=== PATIENT | female | born 1955 | race Caucasian/White ===

== ENCOUNTER 2016-10-19 19:43 | Emergency (ER) | payer MEDICAID ==
[~2016-10-19] VITALS: Ht 165.1 cm; Wt 90.7 kg
[~2016-10-19 19:43] MED LIST: FLUT1DIS IH; INSULIN
[2016-10-19] MEDS ORDERED: ALBUTEROL FS 2.5 MG/3 ML VIAL.NEB CONTNEB ONE (20:30)
[2016-10-19] MEDS ORDERED: DEXAMETHASONE SOD PHOSPHATE 10 MG/ML VIAL IV ONE (20:30)
[2016-10-19] MEDS ORDERED: Magnesium 1GM/D5W 100ML PREMIX 200 ML IV ONE ×2 (20:30→20:46)
[2016-10-19] MEDS ORDERED: IPRATROPIUM NEB FS 0.5 MG/2.5 ML AMPUL.NEB NEB ONE (20:30)
[2016-10-19] MEDS ORDERED: IV NS 0.9% 500 ML IV ONE ×2 (20:30→20:46)
[2016-10-19] MEDS ORDERED: IV SET PRIMARY PUMP SET 1 EA INFUS.SET MC ONE (20:46)
[2016-10-19] MEDS ORDERED: IV SET PRIMARY 1 EA INFUS.SET MC ONE (20:46)
[2016-10-19] MEDS ORDERED: DEXAMETHASONE SOD PHOSPHATE 10 MG/ML VIAL ONE (20:46)
[2016-10-19] MEDS ORDERED: ALBUTEROL FS 2.5 MG/3 ML VIAL.NEB ONE (20:51)
[2016-10-19] MEDS ORDERED: IPRATROPIUM NEB FS 0.5 MG/2.5 ML AMPUL.NEB ONE (20:51)
[2016-10-19 20:56] LABS: BASOPHILS # (AUTO) 0.1 /CMM (0.0-0.2); BASOPHILS % (AUTO) 1.6 % (0.0-2.0); DIFF TOTAL % 100 %; EOSINOPHILS # (AUTO) 0.1 /CMM (0.0-0.7); EOSINOPHILS % (AUTO) 1.5 % (0.0-6.0); HEMATOCRIT 36 % (33-45); HEMOGLOBIN 12.5 g/dL (11.5-14.8); LYMPHOCYTES # (AUTO) 1.3 /CMM (0.8-4.8); LYMPHOCYTES % (AUTO) 17.9 % (20.0-44.0); MEAN CORPUSCULAR HEMOGLOBIN 30 PG (26.0-33.0); MEAN CORPUSCULAR HGB CONC 35 g/dl (31.0-36.0); MEAN CORPUSCULAR VOLUME 85 fL (82-100); MONOCYTES # (AUTO) 0.4 /CMM (0.1-1.30); MONOCYTES % (AUTO) 5.6 % (2.0-12.0); NEUTROPHILS # (AUTO) 5.5 /CMM (1.8-8.9); NEUTROPHILS % (AUTO) 73.4 % (43.0-81.0); PLATELET COUNT (AUTO) 239 /CMM (150-450); RED BLOOD CELL COUNT(AUTO) 4.23 MIL/uL (4.0-5.2); WHITE BLOOD COUNT (AUTO) 7.4 K/uL (4.3-11.0)
[2016-10-19 21:03] LABS: ANION GAP 12 (5-14); CALCIUM, SERUM 8.9 mg/dL (8.5-10.1); CARBON DIOXIDE 30 mmol/L (21-32); CHLORIDE 101 mmol/L (98-107); CREATININE 0.8 mg/dL (0.6-1.3); GFR 73 mL/min (>60); GLUCOSE 279 mg/dL (74-106); POTASSIUM 4.1 mmol/L (3.5-5.1); SODIUM SERUM 139 mmol/L (136-145); UREA NITROGEN, BLOOD 17 mg/dL (7-18)
[2016-10-19 21:10] LABS: TROPONIN I < 0.017 ng/mL (0.00-0.056)
[2016-10-19 21:53] LABS: *LACTIC ACID REFLEX FLAG YES
[2016-10-19 23:06] VITALS: BP 110/76
[2016-10-19 23:21] LABS: BILIRUBIN,DIRECT 0.1 mg/dL (0.0-0.2); BILIRUBIN,TOTAL 0.2 mg/dL (0.2-1.0)
== END 2016-10-19 23:07 | disposition home or self-care (01) ==
LOC: ER 19:52
DX: J44.9 Chronic obstructive pulmonary disease, unspecified (principal); I10 Essential (primary) hypertension; F17.210 Nicotine dependence, cigarettes, uncomplicated
CPT/HCPCS: 36415; 71010-TC; 80048-TC; 82247-TC; 82248-TC; 83605-TC; 83880; 84484-TC; 85025-TC; 87400; A4606; J1100; J3475; J7040; Z7610

== ENCOUNTER 2022-04-10 08:55 | Inpatient (IN) | payer MEDICARE, OTHER ==
[~2022-04-10] VITALS: Ht 165.1 cm; Wt 107.1 kg
--- NOTE | 2022-04-10 09:06 | NUR ---
BIB [facility] FROM HOME C/O HEADACHE, DIZZINESS, WEAKNESS SINCE WOKE UP AROUND 0730, BG 158 CLINICAL SUPPORT MANAGER. SYSTOLIC BP WAS IN 180s. HX DIABETES, HTN, COPD. AAOX4, BREATHING EVEN AND UNLABORED, PULSE 2+ BILATERALLY. +FACIAL WEAKNESS, BUT NO FACIAL DROOP NOTED. BILATERAL UPPER AND LOWER EXTREMITY WEAKNESS. TO ER BED 3, CHANGED TO GOWN. DAUGHTER AT BEDSIDE.
--- NOTE | 2022-04-10 09:08 | NUR ---
PRINTING SALES REPRESENTATIVE AT BEDSIDE
--- NOTE | 2022-04-10 09:10 | NUR ---
blood sample obtained and sent to lab
--- NOTE | 2022-04-10 09:12 | NUR ---
DR BAER AT BEDSIDE
[2022-04-10] MEDS ORDERED: ONDANSETRON HCL/PF 4 MG/2 ML VIAL ONE (09:15)
[2022-04-10] MEDS ORDERED: diphenhydrAMINE HCL 50 MG/ML VIAL ONE (09:15)
--- NOTE | 2022-04-10 09:22 | NUR ---
PT BEGINNING TO FEEL NAUSEA AND VOMITING. EMESIS BAG GENNY EVANS ADMINISTERED.
[2022-04-10] MEDS ORDERED: diphenhydrAMINE HCL 50 MG/ML VIAL IV ONE (09:30)
[2022-04-10] MEDS ORDERED: ONDANSETRON HCL/PF 4 MG/2 ML VIAL IVP ONE (09:30)
[2022-04-10] MEDS ORDERED: IV NS 0.9% 500 ML BAG IV ONE (09:30)
[2022-04-10 09:32] LABS: BASOPHILS % (AUTO) 0.3 % (0.0-2.0); EOSINOPHILS % (AUTO) 1.4 % (0.0-6.0); HEMATOCRIT 40 % (33-45); HEMOGLOBIN 13.2 g/dL (11.5-14.8); LYMPHOCYTES # (AUTO) 1.9 K/uL (0.8-4.8); LYMPHOCYTES % (AUTO) 24.6 % (20.0-44.0); MEAN CORPUSCULAR HGB CONC 33 g/dl (31.0-36.0); MEAN CORPUSCULAR VOLUME 90 fL (82-100); MONOCYTES # (AUTO) 0.4 K/uL (0.1-1.30); MONOCYTES % (AUTO) 4.8 % (2.0-12.0); NEUTROPHILS # (AUTO) 5.5 K/uL (1.8-8.9); NEUTROPHILS % (AUTO) 68.9 % (43.0-81.0); PLATELET COUNT (AUTO) 206 K/uL (150-450); RED BLOOD CELL COUNT(AUTO) 4.41 MIL/uL (4.0-5.2); WHITE BLOOD COUNT (AUTO) 7.9 K/uL (4.3-11.0)
[2022-04-10 09:39] LABS: CALCIUM, SERUM 8.6 mg/dL (8.5-10.1); CARBON DIOXIDE 26 mmol/L (21-32); CHLORIDE 104 mmol/L (98-107); CREATININE 0.7 mg/dL (0.6-1.3); GLUCOSE 195 mg/dL (74-106); POTASSIUM 4.2 mmol/L (3.5-5.1); SODIUM SERUM 138 mmol/L (136-145); UREA NITROGEN, BLOOD 14 mg/dL (7-18)
--- NOTE | 2022-04-10 09:50 | NUR ---
BS 179. PT STATES DID NOT TAKE HER DIABETIC MEDICATION THIS MORNING.
[2022-04-10] MEDS ORDERED: EZET10TA32 PO (10:49)
[2022-04-10] MEDS ORDERED: PROP40TA7 PO (10:49)
[2022-04-10] MEDS ORDERED: PRIM50TA27 PO (10:49)
[2022-04-10] MEDS ORDERED: CLON1TAB12 MT (10:49)
[2022-04-10] MEDS ORDERED: GLIP1TAB5 PO (10:49)
[2022-04-10] MEDS ORDERED: MECL-159 MT (10:49)
[2022-04-10] MEDS ORDERED: MONT10TA22 PO (10:49)
[2022-04-10] MEDS ORDERED: FOLI0.4T6 PO (10:49)
[2022-04-10] MEDS ORDERED: ATOR10TA PO (10:49)
[2022-04-10] MEDS ORDERED: FENO134C PO (10:49)
[2022-04-10] MEDS ORDERED: ASPI-1420 PO (10:49)
[2022-04-10] MEDS ORDERED: OLME1TAB92 PO (10:49)
[2022-04-10] MEDS ORDERED: ACET-2605 PO (10:50)
[2022-04-10] MEDS ORDERED: MAGN400T26 PO (10:50)
--- NOTE | 2022-04-10 10:50 | NUR ---
Paged epic for admission. Awaiting for MD to call back.
[2022-04-10] MEDS ORDERED: INSU100V7 SQ (10:57)
[2022-04-10] MEDS ORDERED: INSU100I4 SQ (10:57)
--- NOTE | 2022-04-10 11:08 | NUR ---
covid sample obtained and sent to lab
--- NOTE | 2022-04-10 12:06 | NUR ---
CALLED NURSING SUP REGARDING PT BED
--- NOTE | 2022-04-10 12:35 | NUR ---
PY LAYING IN BED COMFORTABLY. NO LONGER NAUSEAS, DAUGHTER AT BEDSIDE, NEEDS MET
--- NOTE | 2022-04-10 14:13 | NUR ---
room 321-1
[2022-04-10] MEDS ORDERED: MECLIZINE HCL 25 MG TABLET PO PRN (14:30)
[2022-04-10] MEDS ORDERED: Z GUARD REMEDY 4 OZ OINT TP PRN (14:30)
[2022-04-10] MEDS ORDERED: ONDANSETRON HCL/PF 4 MG/2 ML VIAL IVP PRN (14:30)
[2022-04-10] MEDS ORDERED: ACETAMINOPHEN 325 MG TABLET PO PRN (14:30)
[2022-04-10] MEDS ORDERED: ACETAMINOPHEN ES 500 MG TABLET PO PRN (14:30)
[2022-04-10] MEDS ORDERED: clonazePAM 1 MG TABLET PO PRN (14:30)
[2022-04-10] MEDS ORDERED: MAG HYDROX/AL HYDROX/SIMETH 30 ML UDC PO PRN (14:30)
[2022-04-10] MEDS ORDERED: DEXTROSE 50%-WATER 50 ML DISP.SYRIN IV PRN (14:30)
[2022-04-10] MEDS ORDERED: hydrALAZINE HCL IV 20 MG VIAL IV PRN (14:30)
[2022-04-10] MEDS ORDERED: *INSULIN REGULAR(HUMULIN R)HUM 100 UNIT/ML VIAL SQ PRN (14:30)
[2022-04-10] MEDS ORDERED: MAGNESIUM HYDROXIDE 30 ML UDC PO PRN (14:30)
--- NOTE | 2022-04-10 14:50 | NUR ---
pt transferred to floor following acls protocol
--- NOTE | 2022-04-10 14:50 | NUR ---
vs remained stable during transport
--- NOTE | 2022-04-10 15:30 | NUR ---
ADMISSION RN NOTES ADMITTED A 67 Y/O FEMALE TO UNIT AT 1505 VIA GURNEY ACCOMPANIED BY Shai NURSE WITH DX OF DIZZINESS. PATIENT IS ALERT AND ORIENTED X4, [place] SPEAKING. SUGAR CANE FARM MANAGER AVAILABLE NEEDED. PT ABLE TO MAKE NEEDS KNOWN. PT'S DAUGHTERS AT BEDSIDE. PT ORIENTED TO STAFF AND UNIT. V/S TAKEN AND RECORDED. ON RA, TOLERATING WELL. BREATHING EVEN AND UNLABORED. LUNGS CLEAR BILATERALLY ON AUSCULTATION. PT PLACED ON CARDIAC TELE MONITOR WITH CURRENT READING OF NORMAL SINUS RHYTHM, HR 80. NO C/O OF CARDIAC DISTRESS VOICED AT THIS TIME. ABDOMEN SOFT, NON-TENDER, AND NON-DISTENDED. BOWEL SOUNDS PRESENT IN ALL FOUR QUADRANTS. SKIN IS INTACT, DRY, AND WARM. NO SKIN ISSUES NOTED. IV ACCESS ON RAC G #18 INTACT AND PATENT WITH NS INFUSING AT 75ML/HR. SAFETY MEASURES INITIATED: BED IN LOWEST AND LOCKED POSITION, BED ALARM ON, SIDE RAILS UP X2, AND CALL LIGHT WITHIN REACH. WILL CONTINUE TO MONITOR PT.
[2022-04-10] MEDS: PROPRANOLOL HCL 40 MG TABLET PO SCH (16:01)
[2022-04-10] MEDS: ENOXAPARIN SODIUM 40 MG/0.4 ML DISP.SYRIN SQ SCH (16:04)
[2022-04-10] MEDS: IV NS 0.9% 1,000 ML IV PRN (16:27)
[2022-04-10] MEDS: BLOOD SUGAR DIAGNOSTIC 1 EACH STRIP VI SCH ×2 (17:14→21:34)
[2022-04-10] MEDS: INSULIN REGULAR, HUMAN 100 UNIT/ML 3 ML VIAL SQ PRN (17:15)
--- NOTE | 2022-04-10 19:00 | NUR ---
RN TELEPHONIC CLOSING NOTE PT IN BED AWAKE WITH DAUGHTER AT BEDSIDE. PATIENT IS ALERT AND ORIENTED X4, ABLE TO MAKE NEEDS KNOWN. ON RA, TOLERATING WELL. BREATHING EVEN AND UNLABORED. PT ON CARDIAC TELE MONITOR WITH CURRENT READING OF SINUS RHYTHM WITH PACS, HR 93. NO C/O OF CARDIAC DISTRESS VOICED AT THIS TIME. IV ACCESS ON RAC G #18 INTACT AND PATENT WITH NS INFUSING AT 75ML/HR. ALL NEEDS ATTENDED. KEPT CLEAN AND COMFORTABLE. SAFETY MEASURES IN PLACE: BED IN LOWEST AND LOCKED POSITION, BED ALARM ON, SIDE RAILS UP X2, AND CALL LIGHT WITHIN REACH. WILL ENDORSE TO CONTAMINATION CONSULTANT NURSE FOR DELFINO.
--- NOTE | 2022-04-10 19:25 | NUR ---
TELE/RN NOTE RECEIVED PT IN BED, AWAKE, A/OX4. DAUGHTERS AT BEDSIDE VISITING. NO C/O PAIN. DENIES DIZZINESS AT THIS TIME. IV SITE TO R-AC#18G INTACT/PATENT WITH NS @75ML/HR INFUSING AND AMA WELL. SAFETY INSTRUCTIONS REINFORCED WITH DAUGHTERS REINFORCING IN [place]. PT VERBALIZED UNDERSTANDING. WILL CONT FREQUENT VISUAL CHECK. PROVIDED BEDSIDE COMMODE. SAFETY MEASURES IN PLACE, BED IN LOWEST LOCKED POSITION, S/R UPX2, BED ALARM ON, CALL LIGHT WITHIN REACH. TELE MONITOR READING SR, HR 97, WITH PAC'S AND PVC'S. PT IN NO ACUTE DISTRESS. WILL CONT TO MONITOR.
[2022-04-10 20:00] VITALS: BP 120/62
[2022-04-10] MEDS ORDERED: MONTELUKAST SODIUM (10MG) 10 MG TABLET PO SCH (22:00)
[2022-04-10] MEDS ORDERED: ATORVASTATIN 10 MG TABLET PO SCH (22:00)
[2022-04-11] VITALS: BP 135/71
[2022-04-11 04:12] VITALS: BP 144/77
[2022-04-11] MEDS: IV NS 0.9% 1,000 ML IV PRN (06:18)
[2022-04-11 06:31] LABS: BASOPHILS % (AUTO) 0.3 % (0.0-2.0); EOSINOPHILS % (AUTO) 0.7 % (0.0-6.0); HEMATOCRIT 38 % (33-45); HEMOGLOBIN 12.7 g/dL (11.5-14.8); LYMPHOCYTES # (AUTO) 1.8 K/uL (0.8-4.8); LYMPHOCYTES % (AUTO) 22.6 % (20.0-44.0); MEAN CORPUSCULAR HGB CONC 34 g/dl (31.0-36.0); MEAN CORPUSCULAR VOLUME 89 fL (82-100); MONOCYTES # (AUTO) 0.4 K/uL (0.1-1.30); MONOCYTES % (AUTO) 4.9 % (2.0-12.0); NEUTROPHILS # (AUTO) 5.7 K/uL (1.8-8.9); NEUTROPHILS % (AUTO) 71.5 % (43.0-81.0); PLATELET COUNT (AUTO) 209 K/uL (150-450); WHITE BLOOD COUNT (AUTO) 7.9 K/uL (4.3-11.0)
[2022-04-11 07:06] LABS: CALCIUM, SERUM 8.7 mg/dL (8.5-10.1); CREATININE 0.6 mg/dL (0.6-1.3); MAGNESIUM 1.9 mg/dL (1.8-2.4); PHOSPHORUS 5.3 mg/dL (2.5-4.9); POTASSIUM 3.9 mmol/L (3.5-5.1)
[2022-04-11] MEDS: BLOOD SUGAR DIAGNOSTIC 1 EACH STRIP VI SCH ×2 (07:06→12:42)
--- NOTE | 2022-04-11 07:30 | NUR ---
TIE MAKER NOTES PT IN BED, AWAKE, ALERT AND ORIENTED, NO COMPLAINT OF PAIN OR ANY DISCOMFORT, RESPIRATIONS NORMAL, ASSISTED TO BEDSIDE COMMODE, CALL LIGHT WITHIN REACH, EATING BREAKFAST, NEEDS ATTENDED.
[2022-04-11] MEDS: INSULIN REGULAR, HUMAN 100 UNIT/ML 3 ML VIAL SQ PRN ×2 (07:43→12:35)
[2022-04-11 08:00] VITALS: BP 101/74
[2022-04-11] MEDS ORDERED: PRIMIDONE 50 MG TABLET PO SCH (09:00)
[2022-04-11] MEDS ORDERED: EZETIMIBE 10 MG TABLET PO SCH (09:00)
[2022-04-11] MEDS ORDERED: MAGNESIUM OXIDE 400 MG TABLET PO SCH (09:00)
[2022-04-11] MEDS ORDERED: ASPIRIN EC 81 MG TABLET.DR PO SCH (09:00)
[2022-04-11 09:06] VITALS: BP 101/74
[2022-04-11] MEDS: PROPRANOLOL HCL 40 MG TABLET PO SCH (09:06)
[2022-04-11] MEDS: ENOXAPARIN SODIUM 40 MG/0.4 ML DISP.SYRIN SQ SCH (09:07)
--- NOTE | 2022-04-11 16:05 | NUR ---
INFORMATION TECHNOLOGY AUDITOR NOTES PT AWAKE, WALKING IN HER ROOM, NO COMPLAINT OF DIZZINESS, NO N/V, DAUGHTER AT BEDSIDE, PT SEEN BY DR. GIFFORD, PER MD, PT IS ALREADY CLEARED BY DR. MOSCOSO, PT TO CONTINUE PT WITH HOME HEALTH, ARRANGED BY WIND OPERATIONS MANAGER ELIJAH, DISCHARGE AND MEDICATION INSTRUCTIONS PROVIDED TO PT AND DAUGHTER, VERBALIZED UNDERSTANDING, BELONGINGS ACCOUNTED FOR, ASSISTED PT TO HOSPITAL LOBBY VIA WHEELCHAIR, PICKED UP BY DAUGHTER PEACE, LEFT IN STABLE CONDITION.
== END 2022-04-11 16:05 | disposition home health service (06) | DRG 305 ==
LOC: ER 09:40 → TELE 14:19
PROVIDERS: ADMIT Internal Medicine; ATTEND Internal Medicine
DX: I16.0 Hypertensive urgency (principal); R42 Dizziness and giddiness; E11.9 Type 2 diabetes mellitus without complications; E66.9 Obesity, unspecified; E78.5 Hyperlipidemia, unspecified; J44.9 Chronic obstructive pulmonary disease, unspecified; Z68.39 Body mass index [BMI] 39.0-39.9, adult; Z20.822 Contact with and (suspected) exposure to COVID-19
CPT/HCPCS: 36415; 70450-TC; 71045-TC; 80048-TC; 82962-TC; 83735-TC; 84100-TC; 84484-TC; 85025-TC; 85652-TC; 85730-TC; 87081-TC; 97116-TC; 97530-TC; C9803; G0378; J1200; J1650; J1815; J2405; J7030; J7040

== ENCOUNTER 2022-06-23 10:20 | Emergency (ER) | payer MEDICARE, OTHER ==
[~2022-06-23] VITALS: Ht 167.6 cm; Wt 103.4 kg
[~2022-06-23 10:20] MED LIST changes: +ACET-2605 PO; +ASPI-1420 PO; +ATOR10TA PO; +CLON1TAB12 MT; +EZET10TA32 PO; +FENO134C PO; -FLUT1DIS IH; +FOLI0.4T6 PO; +GLIP1TAB5 PO; +INSU100I4 SQ; +INSU100V7 SQ; -INSULIN; +MAGN400T26 PO; +MECL-159 MT; +MONT10TA22 PO; +OLME1TAB92 PO; +PRIM50TA27 PO; +PROP40TA7 PO
--- NOTE | 2022-06-23 10:31 | NUR ---
TO ER BED [id number] C/O R SHOULDER PAIN S/P TRIP AND FALL, +ABRASION TO R ELBOW NO HEAD TRAUMA ENDORSED, AAOX3, BREATHING EVEN AND NON LABORED, AWAITING MD ORDERS
[2022-06-23] MEDS ORDERED: MORPHINE SULFATE INJ 2 MG/ML DISP.SYRIN ONE ×2 (10:37→11:03)
[2022-06-23] MEDS ORDERED: ONDANSETRON HCL/PF 4 MG/2 ML VIAL ONE (10:37)
[2022-06-23] MEDS ORDERED: MORPHINE SULFATE INJ 2 MG/ML DISP.SYRIN IV ONE ×2 (11:00→11:30)
[2022-06-23] MEDS ORDERED: ONDANSETRON HCL/PF 4 MG/2 ML VIAL IV ONE (11:00)
--- NOTE | 2022-06-23 11:02 | NUR ---
SHEETER OPERATOR AT BEDSIDE FOR XRAY
[2022-06-23] MEDS ORDERED: IV NS 0.9% 1,000 ML BAG IV ONE (11:30)
--- NOTE | 2022-06-23 11:31 | NUR ---
CONTACTED [facility] FOR CONSULT.
--- NOTE | 2022-06-23 12:37 | NUR ---
CONTACTED ORTHO DR. MCCURDY SPEAKING WITH ER
[2022-06-23] MEDS ORDERED: IBUP-1957 PO (12:51)
--- NOTE | 2022-06-23 13:00 | NUR ---
received verbal order of norco 5/325mg from Dr Roe, carried out
[2022-06-23] MEDS ORDERED: HYDROCODONE/APAP 5/325MG TABLET ONE (13:01)
[2022-06-23 13:20] VITALS: BP 146/98
--- NOTE | 2022-06-23 13:20 | NUR ---
IV removed. Catheter intact and site benign. Pressure and 4x4 applied to site. No bleeding noted.Patient discharged to home in stable condition. Written and verbal after care instructions given. Patient verbalizes understanding of instruction.
[2022-06-23] MEDS ORDERED: HYDR-4209 PO (14:11)
[2022-06-24] MEDS ORDERED: HYDROCODONE/APAP 5/325MG TABLET PO ONE (19:30)
== END 2022-06-23 13:20 | disposition home or self-care (01) ==
LOC: ER 10:30
DX: S42.211A Unspecified displaced fracture of surgical neck of right humerus, initial encounter for closed fracture (principal); I10 Essential (primary) hypertension; J44.9 Chronic obstructive pulmonary disease, unspecified; E11.9 Type 2 diabetes mellitus without complications; Z90.49 Acquired absence of other specified parts of digestive tract; Z90.710 Acquired absence of both cervix and uterus; F17.200 Nicotine dependence, unspecified, uncomplicated; Z79.899 Other long term (current) drug therapy; W18.30XA Fall on same level, unspecified, initial encounter; Y93.89 Activity, other specified; Y92.89 Other specified places as the place of occurrence of the external cause; Y99.8 Other external cause status
CPT/HCPCS: 99284; 96374; 96361; 96375; 73090; 73060; 73030; 82962; J2405; J7030; J2270 ×2